=== PATIENT | female | born 1960 | race Caucasian/White ===

== ENCOUNTER → 2016-08-26 | Outpatient (CLI) | payer MEDICAID ==
[2015-12-15 17:48] VITALS: BP 140/76
[~2016-08-26] MED LIST: ADVAIR 500/28 DISKU1 PO; ASPIRIN E.C. 8181 MG PO; BACTRIM DS 8001 TA1 PO; CARAFATE1 G1 PO; CARDURA2 MG PO; CLINDAMYCIN300 MG PO; DIFLUCAN100 M1 PO; ESTRACE0.1 MG/GM VG; FLONASE ALLERG9.9 ML NS; IBUPROFEN200 M2 PO; LASIX20 M1 PO; METOPROLOL SUCC50 M1 PO; MUPIROCIN22 TP; NORCO 325 MG-51 TA1 PO; OMEPRAZOLE40 MG PO; PATADAY 2.5 ML2.5 ML OP; SALAGEN5 M1 PO; SALAGEN5 MG PO
== END ==
LOC: RAD 07:44
DX: R10.84 Generalized abdominal pain (principal); K80.20 Calculus of gallbladder without cholecystitis without obstruction; K44.9 Diaphragmatic hernia without obstruction or gangrene
CPT/HCPCS: Q9967

== ENCOUNTER → 2016-12-26 | Outpatient (CLI) | payer MEDICAID ==
[2015-12-15 17:48] VITALS: BP 140/76
== END ==
LOC: RAD 07:53
DX: K76.0 Fatty (change of) liver, not elsewhere classified (principal); R79.89 Other specified abnormal findings of blood chemistry

== ENCOUNTER 2017-06-09 13:00 | Outpatient (RCR) | payer MEDICAID ==
[2015-12-15 17:48] VITALS: BP 140/76
== END 2017-06-09 13:30 | disposition home or self-care (01) ==
LOC: PT 13:00
DX: M47.819 Spondylosis without myelopathy or radiculopathy, site unspecified (principal); M40.209 Unspecified kyphosis, site unspecified

== ENCOUNTER → 2017-11-22 | Outpatient (CLI) | payer MEDICAID ==
[2015-12-15 17:48] VITALS: BP 140/76
== END ==
LOC: RAD 10:42
DX: M79.675 Pain in left toe(s) (principal)

== ENCOUNTER → 2017-12-11 | Outpatient (CLI) | payer MEDICAID ==
[2015-12-15 17:48] VITALS: BP 140/76
== END ==
LOC: RAD 12-06 07:00
DX: M19.072 Primary osteoarthritis, left ankle and foot (principal); M19.071 Primary osteoarthritis, right ankle and foot; S93.431D Sprain of tibiofibular ligament of right ankle, subsequent encounter

== ENCOUNTER → 2017-12-20 | Outpatient (CLI) | payer MEDICAID ==
[2015-12-15 17:48] VITALS: BP 140/76
== END ==
LOC: MAMMO 08:16
DX: Z12.31 Encounter for screening mammogram for malignant neoplasm of breast (principal); Z13.820 Encounter for screening for osteoporosis; M85.80 Other specified disorders of bone density and structure, unspecified site

== ENCOUNTER 2018-01-10 11:30 | Outpatient (RCR) | payer MEDICAID ==
[2015-12-15 17:48] VITALS: BP 140/76
== END 2018-03-14 | disposition home or self-care (01) ==
LOC: PT
DX: R27.0 Ataxia, unspecified (principal); R47.89 Other speech disturbances; R41.89 Other symptoms and signs involving cognitive functions and awareness

== ENCOUNTER → 2018-04-25 | Outpatient (CLI) | payer MEDICAID ==
[2015-12-15 17:48] VITALS: BP 140/76
== END ==
LOC: RAD 08:34
DX: M40.294 Other kyphosis, thoracic region (principal); R07.9 Chest pain, unspecified; R09.1 Pleurisy; Z96.89 Presence of other specified functional implants

== ENCOUNTER 2018-08-31 17:06 | Emergency (ER) | payer MEDICAID ==
[~2018-08-31] VITALS: Ht 162.6 cm; Wt 93.2 kg
[2018-08-31] MEDS ORDERED: DOCUSATE SOD100 MG PO (17:17)
[2018-08-31] MEDS ORDERED: NORCO 325 MG-51 TA1 PO (19:23)
[2018-08-31 19:34] VITALS: BP 119/59
== END 2018-08-31 19:35 | disposition home or self-care (01) ==
LOC: ED 17:06
DX: S01.21XA Laceration without foreign body of nose, initial encounter (principal); S80.211A Abrasion, right knee, initial encounter; S80.02XA Contusion of left knee, initial encounter; I10 Essential (primary) hypertension; K21.9 Gastro-esophageal reflux disease without esophagitis; Z79.82 Long term (current) use of aspirin; Z90.710 Acquired absence of both cervix and uterus; Z90.49 Acquired absence of other specified parts of digestive tract; W01.0XXA Fall on same level from slipping, tripping and stumbling without subsequent striking against object, initial encounter; Y92.096 Garden or yard of other non-institutional residence as the place of occurrence of the external cause

== ENCOUNTER → 2018-10-30 | Outpatient (RCR) | payer MEDICAID ==
[2015-12-15 17:48] VITALS: BP 140/76
[~2018-10-30] MED LIST changes: +DOCUSATE SOD100 MG PO; +FISH OIL 1,2001 EACH PO; +FUROSEMIDE40 MG PO; +GLUCOSAMINE & C1 CA2 PO; +MAGNESIUM400 MG PO; +MILK THISTLE1 POW; +NATURE'S BLEN2000 IU PO; +POTASSIUM99 M3 PO; +VIVLODEX5 MG PO
== END ==
LOC: PT
DX: M50.33 Other cervical disc degeneration, cervicothoracic region (principal)

== ENCOUNTER → 2018-11-01 | Outpatient (CLI) | payer MEDICAID ==
[2018-10-01 11:50] VITALS: BP 121/60
== END ==
LOC: RAD 15:00
DX: M51.24 Other intervertebral disc displacement, thoracic region (principal)

== ENCOUNTER 2018-12-04 15:30 | Outpatient (RCR) | payer MEDICAID ==
[2018-10-01 11:50] VITALS: BP 121/60
== END 2018-12-04 16:00 | disposition still patient (30) ==
LOC: PT 15:30
DX: S82.001A Unspecified fracture of right patella, initial encounter for closed fracture (principal)

== ENCOUNTER → 2018-12-13 | Outpatient (CLI) | payer MEDICAID ==
[2018-10-01 11:50] VITALS: BP 121/60
== END ==
LOC: LAB 14:51
DX: E03.9 Hypothyroidism, unspecified (principal)

== ENCOUNTER → 2019-04-18 | Day surgery (SDC) | payer MEDICAID ==
[2018-10-01 11:50] VITALS: BP 121/60
== END ==
LOC: MSO 08:48
DX: R19.7 Diarrhea, unspecified (principal); K21.0 Gastro-esophageal reflux disease with esophagitis; J45.909 Unspecified asthma, uncomplicated; E78.00 Pure hypercholesterolemia, unspecified; K59.09 Other constipation; K22.70 Barrett's esophagus without dysplasia; Z88.1 Allergy status to other antibiotic agents; Z88.0 Allergy status to penicillin; Z88.2 Allergy status to sulfonamides; Z91.040 Latex allergy status
CPT/HCPCS: 00813; J2704; J3010; J7120

== ENCOUNTER → 2020-04-22 | Outpatient (CLI) | payer MEDICAID ==
[2018-10-01 11:50] VITALS: BP 121/60
== END ==
LOC: RAD 11:20 → MAMMO 11:30
DX: M85.80 Other specified disorders of bone density and structure, unspecified site (principal)

== ENCOUNTER → 2020-05-22 | Outpatient (CLI) | payer MEDICAID ==
[2018-10-01 11:50] VITALS: BP 121/60
== END ==
LOC: RAD 10:48
DX: R31.29 Other microscopic hematuria (principal)

== ENCOUNTER → 2020-09-04 | Outpatient (CLI) | payer MEDICAID ==
[2018-10-01 11:50] VITALS: BP 121/60
== END ==
LOC: RAD 09:56
DX: D17.79 Benign lipomatous neoplasm of other sites (principal)

== ENCOUNTER → 2021-09-20 | Outpatient (CLI) | payer MEDICAID | LOC: RAD 12:15 | DX: M85.89 Other specified disorders of bone density and structure, multiple sites (principal); M51.34 Other intervertebral disc degeneration, thoracic region; M40.204 Unspecified kyphosis, thoracic region ==

== ENCOUNTER → 2021-12-29 | Day surgery (SDC) | payer MEDICAID | LOC: MSO 06:58 | DX: H25.11 Age-related nuclear cataract, right eye (principal); G47.33 Obstructive sleep apnea (adult) (pediatric) | CPT/HCPCS: 00142; J0171; J2250; V2632 ==

== ENCOUNTER → 2023-09-29 | Outpatient (CLI) | payer MEDICAID ==
[~2023-09-29] MED LIST changes: +CYTOMEL0.005 MG PO; +ELIQUIS5 MG PO; +LATANOPROST 2.2.5 ML OU; +LOPRESSOR 225 MG/TAB PO; +MIRALAX17 GM PO; +NEURONTIN100 M1 PO; +PEPCID40 M1 PO; +ROBAXIN 75750 MG/TA1 PO; +ROXICODONE 55 MG/TAB PO; +SENOKOT S 50 MG1 TAB PO; +SYNTHROID RP0.088 MG PO; +TRAMADOL 50 MG TAB PO
== END ==
LOC: RAD 12:04
DX: M47.812 Spondylosis without myelopathy or radiculopathy, cervical region (principal); Z98.1 Arthrodesis status; S32.009K Unspecified fracture of unspecified lumbar vertebra, subsequent encounter for fracture with nonunion; M41.9 Scoliosis, unspecified

== ENCOUNTER 2023-10-08 09:30 | Emergency (ER) | payer MEDICAID ==
[~2023-10-08 09:30] MED LIST changes: -CYTOMEL0.005 MG PO; -ELIQUIS5 MG PO; -LATANOPROST 2.2.5 ML OU; -LOPRESSOR 225 MG/TAB PO; -MIRALAX17 GM PO; -NEURONTIN100 M1 PO; -PEPCID40 M1 PO; -ROBAXIN 75750 MG/TA1 PO; -ROXICODONE 55 MG/TAB PO; -SENOKOT S 50 MG1 TAB PO; -SYNTHROID RP0.088 MG PO; -TRAMADOL 50 MG TAB PO
[2023-10-08] MEDS ORDERED: Doxycycline Monohydrate 100 MG CAP PO ONE (11:28)
== END 2023-10-08 11:01 | disposition home or self-care (01) ==
LOC: ED 09:30
DX: T14.8XXA Other injury of unspecified body region, initial encounter (principal); L03.90 Cellulitis, unspecified; W57.XXXA Bitten or stung by nonvenomous insect and other nonvenomous arthropods, initial encounter
CPT/HCPCS: 90715

== ENCOUNTER 2023-11-02 11:09 | Inpatient (IN) | payer MEDICAID ==
[~2023-11-02] VITALS: Ht 170.2 cm; Wt 102.1 kg
--- NOTE | 2023-11-02 14:30 | NUR ---
PT ARRIVED VIA TRANSPORTATION SERVICES VIA STRETCHER TO ROOM 202. BELONGINGS IN A SUIT CASE. DENIES HAVING ANY JEWELRY. WALLET WITH ID AND INSURANCE CARDS. CPAP MACHINE. PT ORIENTED TO THE ROOM AND CALL LIGHT. DRESSING ON R SUBCLAVIAN, CLEAN DRY AND INTACT. NO SIGNS OF INFECTION DOWN SPINE WITH LUCIA, CLEAN AND DRY. GLASSES ON PT. NO OTHER NEEDS AT THIS TIME. CALL LIGHT WITHIN REACH.
[2023-11-02 15:26] VITALS: BP 126/81
[2023-11-02] MEDS ORDERED: PEPCID40 M1 PO (15:43)
[2023-11-02] MEDS ORDERED: NEURONTIN100 M1 PO (15:44)
[2023-11-02] MEDS ORDERED: LATANOPROST 2.2.5 ML OU (15:45)
[2023-11-02] MEDS ORDERED: SYNTHROID RP0.088 MG PO (15:48)
[2023-11-02] MEDS ORDERED: CYTOMEL0.005 MG PO (15:49)
[2023-11-02] MEDS ORDERED: LOPRESSOR 225 MG/TAB PO (15:54)
[2023-11-02] MEDS ORDERED: MIRALAX17 GM PO (15:56)
[2023-11-02] MEDS ORDERED: SENOKOT S 50 MG1 TAB PO (15:58)
[2023-11-02] MEDS ORDERED: Methocarbamol 750 MG TAB PO PRN (17:30)
[2023-11-02] MEDS ORDERED: traMADol 50 MG TAB PO PRN (17:30)
[2023-11-02] MEDS ORDERED: Acetaminophen 500 MG TAB PO PRN (17:30)
[2023-11-02 17:43] LABS: URINE APPEARANCE SLIGHTLY CLOUDY (CLEAR); URINE COLOR YELLOW (YELLOW)
[2023-11-02 17:44] LABS: PH-URINE 8.5 (5.0 - 8.0); URINE BILIRUBIN NEGATIVE (NEGATIVE); URINE BLOOD NEGATIVE (NEGATIVE); URINE GLUCOSE NEGATIVE (NEGATIVE); URINE KETONE NEGATIVE (NEGATIVE); URINE LEUKOCYTE ESTERASE TRACE (NEGATIVE); URINE NITRATE NEGATIVE (NEGATIVE); URINE PROTEIN(semi-quant) NEGATIVE (NEGATIVE)
[2023-11-02 17:45] LABS: URINE MUCUS PRESENT (NOT PRESENT)
[2023-11-02 18:11] VITALS: BP 138/80
[2023-11-02] MEDS ORDERED: Latanoprost 0.005% Ophth Soln 2.5 ML BOTTLE OP SCH (21:00)
[2023-11-02] MEDS ORDERED: Polyethylene Glycol 3350 Powder 17 GM PACKET PO SCH (21:00)
[2023-11-02] MEDS ORDERED: Gabapentin 100 MG CAP PO SCH (21:00)
[2023-11-02] MEDS ORDERED: Metoprolol Tartrate 25 MG TAB PO SCH (21:00)
[2023-11-02] MEDS ORDERED: Sennosides/Docusate 8.6-50 MG TAB PO SCH (21:00)
[2023-11-02] MEDS ORDERED: Apixaban 5 MG TABLET PO SCH (21:00)
[2023-11-02] MEDS ORDERED: Famotidine 20 MG TAB PO SCH (21:00)
[2023-11-03 05:37] VITALS: BP 124/72
[2023-11-03 07:17] LABS: BASO # 0.01 K/mm3 (0.02-0.10); EOS # 0.25 K/mm3 (0.04-0.40); EOS % 3.5 % (1.0-5.0); HEMATOCRIT 27.3 % (37.0-47.0); HEMOGLOBIN 8.9 g/dL (12.5-16.0); LYMPH# 1.35 K/mm3 (1.50-4.00); MEAN CELL VOLUME 92 fl (78-100); MEAN CORPUSCULAR HEMOGLOBIN 30 pg (27-31); MEAN CORPUSCULAR HGB CONC 33 g/dL (33-37); MEAN PLATELET VOLUME 10.1 fl (7.4-10.4); MONO # 0.74 K/mm3 (0.20-0.80); NEU # 4.59 K/mm3 (1.40-6.50); PLATELET COUNT 218 K/mm3 (130-400); RED BLOOD COUNT 2.98 M/mm3 (4.10-5.30); WHITE BLOOD COUNT 7.2 K/mm3 (4.8-10.8)
[2023-11-03 07:21] LABS: ALBUMIN 3.2 g/dL (3.4-4.8)
[2023-11-03 07:22] LABS: CALCIUM 8.4 mg/dL (8.3-10.5)
--- NOTE | 2023-11-03 08:50 | NUR ---
THERAPY IN ROOM WORKING WITH PT. MEDICATION GIVEN PO, TOLERATED WITHOUT DIFFICULTY. PT STATED THAT SHE WOULD LIKE TO BE MORE ON A SCHEUDULE RATHER THAN PRN FOR HER PAIN MEDS AND MANANGMENT. DISCUSSED WITH JENNIFFER DELGADO. ASSISTED PT WITH PUTTING ON TLSO BRACE. NO OTHER NEEDS AT THIS TIME. THERAPY STILL IN ROOM.
[2023-11-03] MEDS ORDERED: Polyethylene Glycol 3350 Powder 17 GM PACKET PO SCH (09:00)
[2023-11-03] MEDS ORDERED: Liothyronine 5 MCG TAB PO SCH (09:00)
[2023-11-03] MEDS ORDERED: Sennosides/Docusate 8.6-50 MG TAB PO SCH (09:00)
[2023-11-03] MEDS ORDERED: Meloxicam 7.5 MG TAB PO SCH (09:44)
[2023-11-03] MEDS ORDERED: oxyCODONE 5 MG TAB PO PRN (09:45)
[2023-11-03] MEDS ORDERED: Polyethylene Glycol 3350 Powder 17 GM PACKET PO PRN (09:46)
--- NOTE | 2023-11-03 11:30 | NUR ---
INTERMITTENT CATHERIZATION DONE. 350ML DRAINED FROM BLADDER. ASSESMENT COMPLETE, LUCIA WELL APROXIMATED. DRESSING FROM CENTRAL LINE ON RIGHT SIDE OF NECK REMOVED, AREA CLEAN AROUND SITE. WELL APOXIMATED. TLSO BRACE APPLIED AND PT MOVED TO CHAIR FOR LUNCH. CALL LIGHT WITHIN REACH.
[2023-11-03] MEDS ORDERED: Furosemide 40 MG TAB PO SCH (12:51)
[2023-11-03 17:17] VITALS: BP 122/74
--- NOTE | 2023-11-03 19:00 | NUR ---
received report from Farshad reddy
--- NOTE | 2023-11-03 19:52 | NUR ---
Discussed pt lab results with provider Es, Provider ordered protonix instead of famotidine. no further oredrs placed at this time
--- NOTE | 2023-11-03 21:12 | NUR ---
pt alert and oriented x4, pt rating pain at 6/10. Pt reports discomfort in her bladder area. vieira tube inspected and found to be occuluded by fold of chair, tube removed from that area and urine flowed freely. Pt reports relief from discomfort. Assessment performed and medications deliverd without complications. Incision inspected, no signs of infection noted. 85 kamryn counted by this nurse and one suture at top of incision location from drain location. Pt assisted to bed after applying brace with assistance from BONG Madsen and JIM Mueller, pt now resting in bed on left side with call light placed within reach, pt denied any further needs at this time.
[2023-11-04 05:52] VITALS: BP 112/69; BP 95/62
--- NOTE | 2023-11-04 06:57 | NUR ---
REPORT GIVEN TO THOMAS FLOYD
[2023-11-04] MEDS ORDERED: Liothyronine 5 MCG TAB PO SCH (07:00)
--- NOTE | 2023-11-04 14:44 | NUR ---
PT setting in chair. When she gets up she wears brace TLSO. She is ambulatory with rolling walker. She does need reminders to not get walker to far out in front of her. She does report " walking decreases my joint pain." but then when she is asked about pain level continues to rate 5/10. She has been reading through out the day and having visitors. Area where central line was placed is scabbed and healing without redness or drainage. Pt has 85 kamryn to back. Reklaw intact, suture line intact without redness. No noted sweling noted to back. Pt does have indwelling vieira and clear farooq urine output.
[2023-11-04 18:04] VITALS: BP 118/77
--- NOTE | 2023-11-04 19:00 | NUR ---
received report from Aury reddy
--- NOTE | 2023-11-04 22:17 | NUR ---
pt alert and oriented x4, pt resting in bed. Pt rates pain at 8/10, pain management medication delivered and pt repostioned to left side lying position. Incision inspected, kamryn intact, no signs of infection noted. assessment performed and medications delivered without complications. Pt currently resting in bed with call light in reach, bed alarmed and in lowest position.
[2023-11-05 06:14] VITALS: BP 106/89
--- NOTE | 2023-11-05 07:00 | NUR ---
report given to hermelindo reddy
--- NOTE | 2023-11-05 10:24 | NUR ---
THIS NURSE ASSESSED PT. PT REPORTED A PAIN LEVEL OF 7 OUT OF 10 AFTER WALKING USING HER WALKER. NEST PAIN MED DUE IS AT 1030. PTS LUNG SOUNDS ARE ABSENT IN BILATERAL BASES. THIS RN EDUCATED PT ABOUT USING INCENTIVE SPIROMETER. PT VERBALIZED UNDERTANDING AND DEMONSTRATED USING THE IS. PT INHALED ON IS 10X. RN EDUCATED ON BREATHING SLOW AND STEADY VS. QUICK AND POWERFUL. PT IS SITTING UP IN HER RECLINING CHAIR, CALL LIGHT WITHIN REACH.
[2023-11-05 17:05] VITALS: BP 126/83
--- NOTE | 2023-11-05 19:44 | NUR ---
[facility]
--- NOTE | 2023-11-05 20:30 | NUR ---
PT IS READING IN CHAIR AND STATES THAT HER PAIN IS 10/10. PT HAS A GOLDSMITH INPLACE FOR RETENTION THAT IS TO DEPENDENT DRAINAGE AND DRAINING APPROPRIATELY. PT MEDICATED PER EMAR AND ASSESSED. PT HAS FALL PREVENTION MAT UNDERNEATH HER ADN CALL LIGHT IN REACH
[2023-11-06 05:19] VITALS: BP 102/59
[2023-11-06] MEDS ORDERED: Polyethylene Glycol 3350 Powder 17 GM PACKET PO ONE (07:45)
--- NOTE | 2023-11-06 13:19 | NUR ---
PT. alert and oriented times 4. She wears brace when she is up. She has been working with therapy and reports her pain does decrease. OT is working on getting her positioned better in recliner. He pain has decreased after pain medications. Suture intact and all kamryn are intact. edges well approximated. no redness or swelling noted.
--- NOTE | 2023-11-06 15:07 | NUR ---
Pt resting in recliner. She has been working with therapy. She is alert and uses call light for assistance. She was educated on looking forward and not at her feet.
[2023-11-06 18:00] VITALS: BP 109/67
--- NOTE | 2023-11-06 19:50 | NUR ---
Pt. alert and oriented. She has been walking frequently. She does report pain is better at this time 07/15 . She does use call light to notify staff for needs.
--- NOTE | 2023-11-06 20:00 | NUR ---
PT IS SITTING IN CHAIR AFTER WALKING IN HALLS. PT WEARS CTLSO BRACE WHEN AMBULATING. PT AMBULATES WITH A STRONG AND STEADY GAIT. PT IS A&O AND STATES THAT HER PAIN IS MANAGEABLE, BUT RANGES FROM 8-10/10.
[2023-11-06 22:14] VITALS: BP 127/78
[2023-11-07 06:01] VITALS: BP 104/61
[2023-11-07 07:01] LABS: BASO # 0.02 K/mm3 (0.02-0.10); EOS # 0.25 K/mm3 (0.04-0.40); EOS % 3.8 % (1.0-5.0); HEMATOCRIT 28.1 % (37.0-47.0); HEMOGLOBIN 8.8 g/dL (12.5-16.0); LYMPH# 1.43 K/mm3 (1.50-4.00); MEAN CELL VOLUME 95 fl (78-100); MEAN CORPUSCULAR HEMOGLOBIN 30 pg (27-31); MEAN CORPUSCULAR HGB CONC 31 g/dL (33-37); MEAN PLATELET VOLUME 9.3 fl (7.4-10.4); MONO # 0.45 K/mm3 (0.20-0.80); NEU # 4.42 K/mm3 (1.40-6.50); PLATELET COUNT 400 K/mm3 (130-400); RED BLOOD COUNT 2.96 M/mm3 (4.10-5.30); RED CELL DISTRIBUTION WIDTH 15.8 % (11.5-14.5); WHITE BLOOD COUNT 6.6 K/mm3 (4.8-10.8)
[2023-11-07 07:26] LABS: ALBUMIN 3.5 g/dL (3.4-4.8)
[2023-11-07 07:27] LABS: CALCIUM 8.8 mg/dL (8.3-10.5)
[2023-11-07 07:28] LABS: TOTAL PROTEIN 5.4 g/dL (6.2-8.1)
[2023-11-07 07:30] LABS: TOTAL BILIRUBIN 1.1 mg/dL (0.2-1.2)
--- NOTE | 2023-11-07 14:47 | NUR ---
Social History [id number] Dede Mcnamara : 1960 Dede Mcnamara lives in [facility] by herself. She has a son who lives in [place]. Sandor Gutierrez [phone]. He is her DPOA and designated health care agent. She has [facility]. Her Nurse Eden Krishna has been in touch with this Biomass Plant Technician. . . Upon discharge she will likely need PT/OT/SN/ST and Bath aid. Dede had neurosurgery at [facility] because she has Kyphoscoliosis. She arrived to swing bed on 11/02/23. She has a back brace (TLSO). She seems to be in great spirits and is doing well with therapy. Her son has been here to see her, and she seems to have a good relationship with him and his . 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 She is on disability due to her medical conditions. Currently she does not have a [employer]aritan affiliation. She likes to paint, and she does healing scrap books. She enjoys lyndsay as well. While inpatient she seems to be working with therapies well. Pain after therapy is rated 7/10. Medications do help relieve some of this pain.
--- NOTE | 2023-11-07 14:48 | NUR ---
Called Dr. Villarreal's office ([facility]) Deshaun Dhillon. [phone] Villarreal's nurse advising Dede has an outpatient injection scheduled at 5:15 on 11/10/[address] [place] [address] . Outpatient infusion Center. I asked her nurse if Dr. Villarreal wanted to send an order here ([facility]) or if this was something she wanted to reschedule.
[2023-11-07 17:35] VITALS: BP 109/70
[2023-11-08 05:22] VITALS: BP 98/53
--- NOTE | 2023-11-08 08:57 | NUR ---
0730 THIS RN ASSESSED PT. PT REPORTED A PAIN LEVEL OF 7 IN HER BACK AND HIPS. PT IS LYING DOWN IN BED, ANCHORER ASSISTED PT WITH HYGIENE. THIS RN AND OVERSIZE LOAD PILOT ESCORT SRAVAN ASSISTED PT TO HER RECLINER. PT DENIED HAVING ANY OTHER CONCERNS. 0830 THIS RN AND OVERSIZE LOAD PILOT ESCORT SRAVAN ADMINISTERED MEDICTATIONS INCLUDING PAIN CONTROL AND A MUSCLE RELAXER. PT DENIES ANY CONCERNS AT THIS TIME. CALL LIGHT WITHIN REACH.
[2023-11-08 09:41] VITALS: BP 131/75
[2023-11-08] MEDS ORDERED: Multivitamin TAB PO SCH (12:27)
[2023-11-08] MEDS ORDERED: Acetaminophen 500 MG TAB PO PRN (13:45)
[2023-11-08 17:24] VITALS: BP 110/60
--- NOTE | 2023-11-08 19:10 | NUR ---
Report received from Farshad FLOYD. Patient sitting up in recliner watching TV. A/O x4. Rates pain 4/10 which patient states is tolerable for her. Incision to back W/A with kamryn intact. Assessment completed. CAT SCAN TECHNOLOGIST in to reposition for comfort. Chair alarm on. Call light in reach.
--- NOTE | 2023-11-08 19:15 | NUR ---
Up ambulating in halls with RUNNING SPECIALIST, brace in place.
--- NOTE | 2023-11-08 22:26 | NUR ---
Oxycodone given per request for reported back pain 02/14.
[2023-11-09 05:30] VITALS: BP 102/62
[2023-11-09 05:31] VITALS: BP 167/78
--- NOTE | 2023-11-09 06:41 | NUR ---
Report to Farshad FLOYD.
--- NOTE | 2023-11-09 08:45 | NUR ---
PT UP FOR BREAKFAST IN CHAIR. RATED PAIN 8/10, SEE MAR FOR MEDICATION GIVEN. ASSESMENT COMPLETE. GOLDSMITH IN PLACE WITH SECURE DEVICE. 1 ASSIST TO BATHROOM. PT BACK TO CHAIR. DISCUSSED WITH PT PAIN MANANGMENT AND EDUCATION ABOUT MEDICATIONS SHE IS TAKING. NO OTHER NEEDS AT THIS TIME. CHAIR ALARM ON, CALL LIGHT WITHN REACH.
[2023-11-09 17:57] VITALS: BP 102/53
--- NOTE | 2023-11-09 19:20 | NUR ---
Report received from Farshad FLOYD. Patient sitting up in recliner. Rates pain 6/10, requests Tramadol/Tylenol at this time and given. Would like Oxy and muscle relaxer with HS medications. Assessment completed. Yarbrough patent to DD with clear yellow urine. Chair alarm on, call light in reach.
--- NOTE | 2023-11-10 02:32 | NUR ---
Rests with CPAP in place. Awakens when nurse enters room. Denies needs at this time. 700 ML emptied from vieira bag.
--- NOTE | 2023-11-10 05:11 | NUR ---
Awake and alert. VS obtained. AM medications taken. Denies need for analgesic at this time.
[2023-11-10 05:17] VITALS: BP 104/64
--- NOTE | 2023-11-10 06:30 | NUR ---
Oxycodone given per request for pain 12/15.
--- NOTE | 2023-11-10 06:48 | NUR ---
Report to Pacheco FLOYD.
--- NOTE | 2023-11-10 09:37 | NUR ---
0830 THIS NURSE ASSESSED PT, PT REPORTS A 6-7 PAIN LEVEL OUT OF 10. PTS SKIN IS WARM DRY AND INTACT. PT SITTING UP IN HER RECLINER, CALL LIGHT WITHIN REACH.
--- NOTE | 2023-11-10 13:27 | NUR ---
PT IN CHAIR FOR STAPLE REMOVAL. 84 TOTAL LUCIA REMOVED FROM PTS BACK. PT TOLERATED PROCEDURE WELL WITHOUT ANY PAIN. EDGES WELL APROXIMATED, CLEAN DRY AND INTACT.
[2023-11-10 18:19] VITALS: BP 118/70
[2023-11-11 06:10] VITALS: BP 102/42
--- NOTE | 2023-11-11 08:15 | NUR ---
REPORT FROM MARIEL LORA. PT. SITTING UP IN RECLINER CHAIR FOR BREAKFAST, REPORTS PAIN 5/10 AT THIS TIME AND REQUESTS TYLENOL. ALSO REQUESTS MIRALAX, HAS NOT HAD BM FOR A COUPLE DAYS. DENIES ANY OTHER NEEDS OR CONCERNS.
[2023-11-11 17:43] VITALS: BP 93/47
--- NOTE | 2023-11-11 19:00 | NUR ---
Report received from Denita FLOYD.
--- NOTE | 2023-11-11 20:30 | NUR ---
Patient ambulated in hallway with LEAD MANUFACTURING ENGINEER and brace on. HS meds all reviewed and given. Monitoring pain and soft lump to right upper back. Incision approximated and healing. No redness or drainage. States will take rajiv and tylenol arount 5 prior to sleep for pain and sleep. Alert and oriented x 4.
--- NOTE | 2023-11-12 06:00 | NUR ---
Patient reports she slept well this noc. Reports 7/ upper back pain and tramadol given per request.
[2023-11-12 06:20] VITALS: BP 97/62
--- NOTE | 2023-11-12 07:21 | NUR ---
Report received and care assumed. Pt resting in bed with eyes closed and no signs of distress or discomfort noted. Call light in reach, bed alarm on.
--- NOTE | 2023-11-12 08:24 | NUR ---
Pt requests robaxin for increasing back stiffness and pain. Given per PRN orders. No further needs or concerns at this time.
--- NOTE | 2023-11-12 13:05 | NUR ---
REPORT RECEIVED FROM ARLYN FLOYD.
--- NOTE | 2023-11-12 13:14 | NUR ---
Report given to MARIEL Eastman and care transferred.
--- NOTE | 2023-11-12 16:15 | NUR ---
TALKATIVE. STRONG SPIRITUAL BELIEFS. DISCUSS [employer] PATIENT LIKES TO PLAY. HAS 2 AREAS OF CONCERN TO HER BACK- UPPER RT AND LOWER RT. SHE VOICES CONCERN OF HARDWARE MIGRATION. WOULD APPRECIATE XRAYS TO EASE MIND THIS HAS HAPPENED TO HER IN THE PAST.
[2023-11-12 18:00] VITALS: BP 93/59
[2023-11-13 05:33] VITALS: BP 96/61
--- NOTE | 2023-11-13 08:55 | NUR ---
PT UP IN CHAIR FOR BREAKFAST. HAD CONCERNS ABOUT THE HARDWARE IN HER BACK MOVING SINCE IT HAS HAPPENED BEFORE AND SHE FELT A COUPLE BUMPS ON HER BACK. X-RAY CONFIRMED PLACEMENT OF HARDWARE AND NO ABNORMALITIES. ASSESMENT COMPLETE. MEDICATION TAKEN PO. NO OTHER WANTS OR NEEDS AT THIS TIME. GOLDSMITH IN PLACE. CHAIR ALARM ON, CALL LIGHT WITHIN REACH.
[2023-11-13 17:16] VITALS: BP 102/56
[2023-11-14 05:19] VITALS: BP 96/55
[2023-11-14 05:39] LABS: BASO # 0.04 K/mm3 (0.02-0.10); EOS # 0.26 K/mm3 (0.04-0.40); EOS % 5.1 % (1.0-5.0); HEMATOCRIT 28.1 % (37.0-47.0); HEMOGLOBIN 8.7 g/dL (12.5-16.0); LYMPH# 1.46 K/mm3 (1.50-4.00); MEAN CELL VOLUME 96 fl (78-100); MEAN CORPUSCULAR HEMOGLOBIN 30 pg (27-31); MEAN CORPUSCULAR HGB CONC 31 g/dL (33-37); MEAN PLATELET VOLUME 9.3 fl (7.4-10.4); MONO # 0.39 K/mm3 (0.20-0.80); NEU # 2.96 K/mm3 (1.40-6.50); PLATELET COUNT 399 K/mm3 (130-400); RED BLOOD COUNT 2.93 M/mm3 (4.10-5.30); RED CELL DISTRIBUTION WIDTH 15.2 % (11.5-14.5); WHITE BLOOD COUNT 5.1 K/mm3 (4.8-10.8)
[2023-11-14 05:48] LABS: ALBUMIN 3.4 g/dL (3.4-4.8)
[2023-11-14 05:49] LABS: CALCIUM 8.6 mg/dL (8.3-10.5)
[2023-11-14 05:51] LABS: TOTAL PROTEIN 5.2 g/dL (6.2-8.1)
[2023-11-14 05:52] LABS: TOTAL BILIRUBIN 0.6 mg/dL (0.2-1.2)
--- NOTE | 2023-11-14 08:35 | NUR ---
PT UP IN CHAIR FOR BREAKFAST. HAD CONCERNS ABOUT HER BOWELS SINCE IT HAS BEEN TWO DAYS SINCE SHES GONE LAST, STOOL SOFTNER GIVEN, WILL CONTINUE TO MONITOR. PAIN 10/15. GOLDSMITH IN PLACE. MEDICATION TAKEN PO. ASSESMENT COMPLETE. INCISION SITE DOWN MIDLINE BACK HEALING WELL. NO OTHER WANTS OR NEEDS AT THIS TIME. CALL LIGHT WITHIN REACH.
[2023-11-14 17:52] VITALS: BP 110/66
--- NOTE | 2023-11-14 19:11 | NUR ---
report received from baudilio reddy
--- NOTE | 2023-11-14 20:33 | NUR ---
pt alert and oriented x4, pt resting in chair. pt reports pain at 6/10, assessment performed and medications delivered without complication. pt reports having a good day today. pt anxious about being discharged home with vieira catheter in. pt now resting in chair with call light in reach, pt denied furhter needs at this time.
[2023-11-15 05:37] VITALS: BP 105/64
--- NOTE | 2023-11-15 07:00 | NUR ---
REPORT RECIEVED FROM MRAIEL SAMSON
--- NOTE | 2023-11-15 07:04 | NUR ---
[facility]
--- NOTE | 2023-11-15 07:45 | NUR ---
PATIENT SITTING IN CHAIR, A&Ox4; STATES PAIN TO UPPER BACK AT THIS TIME. PATIENT DENIES OTHER NEEDS OR COMPLAINTS AT THIS TIME. CHAIR ALARM COPY LATHE TENDER LIGHT WITHIN REACH.
--- NOTE | 2023-11-15 11:00 | NUR ---
PER [facility] MEETING, TANNER GOLDSMITH. PATIENT TO STRAIGHT CATH. PATIENT STRAIGHT CATHS AT HOME PRIOR TO SURGERY, WILL CONTNIUE AFTER RETURNING HOME.
--- NOTE | 2023-11-15 15:00 | NUR ---
SPOKE WITH DR. ROBLES'S NURSE WITH NEUROSURGERY REGARDING SHOWERING WITHOUT BRACE AND UNDOING ONE SIDE OF BRACE WHILE SITTING ON TOILET TO CATH. IT IS OK TO REMOVE BRACE TO SHOWER AND TO UNDO ONE SIDE OF BRACE TO CATH WHILE SITTING ON TOILET. REMIND PATIENT NO BENDING OR TWISTING WHILE IN SHOWER OR ON TOILET.
--- NOTE | 2023-11-15 15:30 | NUR ---
OT REPORTED TO THIS NURSE, PATIENT ABLE TO STRAIGHT CATH WHILE SITTING ON TOILET AT 1515
[2023-11-15 17:23] VITALS: BP 111/50
[2023-11-16 05:27] VITALS: BP 107/68
--- NOTE | 2023-11-16 08:15 | NUR ---
JENNIFFER DELGADO SPOKE WITH 'S NURSE ABRAHAM WHO SAID THAT HE WAS OKAY WITH PT TO TAKE OFF TLSO BRACE WHILE STRAIGHT CATHING ON THE TOILET. PT NOTIFIED OF THIS CHANGE.
--- NOTE | 2023-11-16 08:45 | NUR ---
PT IN CHAIR TALKING WITH CASE KYLAH. MEDICATION TAKEN PO. ASSESMENT COMPLETE. INCISION DOWN SPINE HEALING WELL. PT STATED THAT HER SHOWER FELT GOOD THIS AM AND WAS A LITTLE SORE FROM IT, PRN PAIN MEDICATION GIVEN. NO OTHER WANTS/NEEDS AT THIS TIME. CALL LIGHT WITHIN REACH, CHAIR ALARM ON.
--- NOTE | 2023-11-16 12:14 | NUR ---
[facility] staff advise that they think pt will not have the available services when she goes home. They think she would be better to go to nursing home care for the duration of her surgeries. Since staffing for Medicaid providers are short.
[2023-11-16 17:12] VITALS: BP 109/68
[2023-11-17 05:20] VITALS: BP 96/60
--- NOTE | 2023-11-17 08:55 | NUR ---
PT IN BED. STRAIGHT CATH DONE, UA SENT TO LAB. PT TOLERATED WELL. PT BACK TO BED FOR MEDICATION ADMINISTRATION. PILLS TAKEN PO. ASSESMENT COMPLETE. EDUCATED PT ON DISCHARGE FOR TOMORROW. NO OTHER WANTS OR NEEDS AT THIS TIME. CHAIR ALARM ON, CALL LIGHT WITHIN REACH.
[2023-11-17 10:09] LABS: PH-URINE 5.5 (5.0 - 8.0); URINE APPEARANCE CLEAR (CLEAR); URINE BILIRUBIN NEGATIVE (NEGATIVE); URINE BLOOD NEGATIVE (NEGATIVE); URINE COLOR YELLOW (YELLOW); URINE GLUCOSE NEGATIVE (NEGATIVE); URINE KETONE NEGATIVE (NEGATIVE); URINE LEUKOCYTE ESTERASE NEGATIVE (NEGATIVE); URINE NITRATE NEGATIVE (NEGATIVE); URINE PROTEIN(semi-quant) NEGATIVE (NEGATIVE); URINE WBC 0-1 /hpf (0-3)
--- NOTE | 2023-11-17 10:24 | NUR ---
Dede is set for dc on Monday. Her son will be here around 10 or 11. [facility] will be able to provide. long-term and PT. [facility] will provide home care 3 hours a week. Other options for care have been reviewed. The above plan is what Dede feels and PT/Case Management is best for Dede.
[2023-11-17 17:05] VITALS: BP 99/60
[2023-11-18 06:09] VITALS: BP 96/55
[2023-11-18] MEDS ORDERED: ROXICODONE 55 MG/TAB PO (06:54)
[2023-11-18] MEDS ORDERED: TRAMADOL 50 MG TAB PO (06:55)
[2023-11-18] MEDS ORDERED: ROBAXIN 75750 MG/TA1 PO (06:56)
[2023-11-18] MEDS ORDERED: ELIQUIS5 MG PO (06:57)
--- NOTE | 2023-11-18 08:02 | NUR ---
A&Ox4, RA, no c/o pain or discomfort. Abulated from chair to bathroom, SBA with gait belt and walker. Assisted with packings. SIZER HAND assisted with dressing. Swollowed pills whole with water. Declined to take Lasix, son will be picking her up and driving a long distance home. She is concerned about needing to use the restroom. Plans to take her AM dose upon arriving home. Resting in chair. Chair in locked position. Chair alarm on. Call light within reach.
== END 2023-11-18 10:50 | disposition home health service (06) | DRG 862 ==
LOC: MED/SURG 11:09
PROVIDERS: Family Medicine; Nurse Practitioner; ADMIT Family Medicine
DX: Z47.89 Encounter for other orthopedic aftercare (principal); M40.204 Unspecified kyphosis, thoracic region; N18.2 Chronic kidney disease, stage 2 (mild); E78.5 Hyperlipidemia, unspecified; M79.7 Fibromyalgia; K21.9 Gastro-esophageal reflux disease without esophagitis; E06.3 Autoimmune thyroiditis; N31.9 Neuromuscular dysfunction of bladder, unspecified; D69.6 Thrombocytopenia, unspecified; I47.10 Supraventricular tachycardia, unspecified; G89.29 Other chronic pain; M54.9 Dorsalgia, unspecified; R44.9 Unspecified symptoms and signs involving general sensations and perceptions; R53.1 Weakness; Z79.890 Hormone replacement therapy; Z79.891 Long term (current) use of opiate analgesic; Z95.828 Presence of other vascular implants and grafts; Z86.718 Personal history of other venous thrombosis and embolism; Z90.49 Acquired absence of other specified parts of digestive tract; Z90.710 Acquired absence of both cervix and uterus; Z98.1 Arthrodesis status; Z88.0 Allergy status to penicillin; Z88.2 Allergy status to sulfonamides; Z88.8 Allergy status to other drugs, medicaments and biological substances

== ENCOUNTER → 2024-01-11 | Outpatient (CLI) | payer MEDICAID ==
[~2024-01-11] MED LIST changes: +CYTOMEL0.005 MG PO; +ELIQUIS5 MG PO; +LATANOPROST 2.2.5 ML OU; +LOPRESSOR 225 MG/TAB PO; +MIRALAX17 GM PO; +NEURONTIN100 M1 PO; +PEPCID40 M1 PO; +ROBAXIN 75750 MG/TA1 PO; +ROXICODONE 55 MG/TAB PO; +SENOKOT S 50 MG1 TAB PO; +SYNTHROID RP0.088 MG PO; +TRAMADOL 50 MG TAB PO
== END ==
LOC: RAD 10:54
DX: M41.50 Other secondary scoliosis, site unspecified (principal); M40.204 Unspecified kyphosis, thoracic region; S32.009K Unspecified fracture of unspecified lumbar vertebra, subsequent encounter for fracture with nonunion; M41.9 Scoliosis, unspecified; M54.6 Pain in thoracic spine; G89.29 Other chronic pain; Z98.1 Arthrodesis status

== ENCOUNTER 2024-02-01 13:59 | Outpatient (RCR) | payer MEDICAID | END 2024-02-05 | disposition home or self-care (01) | LOC: PT | DX: G89.29 Other chronic pain (principal); M54.6 Pain in thoracic spine; M41.50 Other secondary scoliosis, site unspecified; Z98.1 Arthrodesis status; Z98.890 Other specified postprocedural states ==

== ENCOUNTER 2024-02-08 08:00 | Outpatient (RCR) | payer MEDICAID | END 2024-03-07 | disposition home or self-care (01) | LOC: PT | DX: M41.50 Other secondary scoliosis, site unspecified (principal); Z98.1 Arthrodesis status ==

== ENCOUNTER → 2024-04-02 | Outpatient (CLI) | payer MEDICAID | LOC: RAD 10:30 | DX: G89.29 Other chronic pain (principal); M54.6 Pain in thoracic spine; M41.50 Other secondary scoliosis, site unspecified; Z98.1 Arthrodesis status ==

== ENCOUNTER → 2024-07-31 | Outpatient (CLI) | payer MEDICAID | LOC: RAD 13:27 | DX: M41.50 Other secondary scoliosis, site unspecified (principal); M54.6 Pain in thoracic spine; G89.29 Other chronic pain; S32.009K Unspecified fracture of unspecified lumbar vertebra, subsequent encounter for fracture with nonunion; Z98.1 Arthrodesis status ==

== ENCOUNTER → 2024-07-31 | Outpatient (CLI) | payer MEDICAID | LOC: RAD 13:22 | DX: R22.9 Localized swelling, mass and lump, unspecified (principal); M79.89 Other specified soft tissue disorders ==

== ENCOUNTER → 2024-08-23 | Outpatient (CLI) | payer MEDICAID | LOC: RAD 10:06 | DX: M19.042 Primary osteoarthritis, left hand (principal); M19.041 Primary osteoarthritis, right hand; M25.511 Pain in right shoulder ==